=== PATIENT | male | born 1985 | race Caucasian/White ===

== ENCOUNTER 2017-08-18 06:50 | Day surgery (SDC) | payer BC ==
[2017-08-18] MEDS: LIDOCAINE 1%/EPI 30 ML INJ INJ
[~2017-08-18 06:50] MED LIST: CEFAZOLIN 2 GM/50 ML (PMX) 50 ML IVPB; SOD CHLORIDE 0.9% 1,000 ML IV
[2017-08-18 07:58] LABS: ADD MAN DIFF? NO
[2017-08-18 08:00] LABS: BASOPHILS % 0.5 % (0.0-2.0); EOSINOPHILS # 0.6 10^3/ul (0.0-0.5); EOSINOPHILS % 10.4 % (0.0-7.0); HEMATOCRIT 42.4 % (42.0-52.0); HEMOGLOBIN 14.4 g/dl (14.0-18.0); LYMPHOCYTES % 36.1 % (15.0-51.0); MEAN CORPUSCULAR HEMOGLOBIN 30.9 pg (29.0-33.0); MEAN PLATELET VOLUME 9.1 fl (7.4-10.4); MONOCYTE # 0.4 10^3/ul (0.3-0.9); MONOCYTES % 6.4 % (0.0-11.0); NEUTROPHIL # 2.6 10^3/ul (1.6-7.5); NEUTROPHILS % 46.2 % (39.0-77.0); PLATELET COUNT 221 10^3/UL (140-415); RED BLOOD COUNT 4.66 10^6/ul (4.70-6.10); RED CELL DISTRIBUTION WIDTH 12.4 % (11.5-14.5)
[2017-08-18 08:00] LABS: WHITE BLOOD COUNT 5.7 10^3/ul (4.8-10.8)
[2017-08-18 08:30] LABS: INR 0.93; PROTIME 12.6 Sec (11.9-14.9)
[2017-08-18 08:31] LABS: PARTIAL THROMBOPLASTIN TIME 30.7 Sec (25.0-35.0)
[2017-08-18 08:34] LABS: ALANINE AMINOTRANSFERASE 23 IU/L (13-69); ALBUMIN/GLOBULIN RATIO 1.29; ALKALINE PHOSPHATASE 57 IU/L (42-121); ANION GAP 14 (8-16); ASPARTATE AMINO TRANSFERASE 30 IU/L (15-46); CARBON DIOXIDE 31 mmol/L (21-31); CHLORIDE 105 mmol/L (97-110); GLUCOSE 102 mg/dl (70-220); TOTAL PROTEIN 7.1 g/dl (6.1-8.1)
[2017-08-18 08:40] LABS: BLOOD UREA NITROGEN 13 mg/dl (7-20); CREATININE 0.74 mg/dl (0.61-1.24); POTASSIUM 3.6 mmol/L (3.5-5.1)
[2017-08-18 08:42] LABS: SODIUM 146 mmol/L (135-144)
[2017-08-18] MEDS ORDERED: MEPERIDINE 100 MG INJ (08:53)
[2017-08-18] MEDS ORDERED: PROPOFOL 20 ML (08:53)
[2017-08-18] MEDS ORDERED: CEFAZOLIN 1 GM INJ (08:53)
[2017-08-18] MEDS ORDERED: LIDOCAINE 100 MG SYRINGE (08:53)
[2017-08-18] MEDS ORDERED: OXYCODONE/ACETAMINOPHEN (5/325) TAB PO (09:00)
[2017-08-18] MEDS ORDERED: DIPHENHYDRAMINE 50 MG INJ IV (09:00)
[2017-08-18] MEDS ORDERED: HYDROmorphONE (0.2 MG/ML) 10ML SYG IV ×2 (09:00)
[2017-08-18] MEDS ORDERED: METOCLOPRAMIDE 10 MG INJ IV (09:00)
[2017-08-18] MEDS ORDERED: FENTAnyl 50 MCG/ML VIAL IV ×3 (09:00)
[2017-08-18] MEDS ORDERED: MIDAZOLAM 1 MG/ML 2 ML INJ IV (09:00)
[2017-08-18] MEDS ORDERED: ROCURONIUM 50 MG INJ (09:15)
[2017-08-18] MEDS ORDERED: GLYCOPYRROLATE 0.4 MG INJ (09:19)
[2017-08-18] MEDS ORDERED: NEOSTIGMINE 3 MG/3 ML SYRINGE (09:19)
[2017-08-18] MEDS ORDERED: LIDOCAINE 1%/EPI 30 ML INJ (09:20)
[2017-08-18] MEDS: ONDANSETRON 4 MG INJ IV (10:11)
[2017-08-18] MEDS: HYDROmorphONE (0.2 MG/ML) 10ML SYG IV ×4 (10:11→10:39)
[2017-08-18] MEDS: MEPERIDINE 25 MG INJ IV (10:11)
[2017-08-18] MEDS: OXYCODONE/ACETAMINOPHEN (5/325) TAB PO (11:00)
== END 2017-08-18 11:35 | disposition home or self-care (01) ==
LOC: SDS 06:50
DX: K42.9 Umbilical hernia without obstruction or gangrene (principal)
CPT/HCPCS: 49585; 80053; 85025; 85610; 85730